=== PATIENT | female | born 1975 | race Caucasian/White ===

== ENCOUNTER 2018-09-10 19:23 | Emergency (ER) | payer SELFPAY, OTHER | END 2018-09-10 22:39 | disposition home or self-care (01) | LOC: ER FS 19:23 ==

== ENCOUNTER 2018-10-03 16:59 | Emergency (ER) | payer SELFPAY ==
[~2018-10-03] VITALS: Ht 157.5 cm; Wt 74.4 kg
[~2018-10-03 16:59] MED LIST: AMOX-358 PO; TRAM50TA2 PO
--- NOTE | 2018-10-03 17:03 | ED General ---
General Chief Complaint: Skin/Wound Problems Stated Complaint: WOUND ISSUES,FEVER, VOMITING, PAIN, LOW BP History of Present Illness Date Seen by Provider: Oct 03, 2018 Time Seen by Provider: 17:03 Initial Comments Patient sustained the laceration on September 10 and did not get the sutures taken out and she says since yesterday it has been more red and swollen around the wound and started draining purulent material today. She has surrounding cellulitis it goes down her leg. She is able to walk without difficulty and says that movements of her joint do not particularly make it worse. She has had no fevers or chills but she has been having nausea and vomiting today. She is in no obvious distress with normal vital signs other than noted low blood pressure. Allergies and Home Medications Allergies Coded Allergies: No Known Drug Allergies (Unverified , 09/10/18) Home Medications Amoxicillin/Potassium Clav 1 Each Tablet, 1 EACH PO BID Prescribed by: CRISTIANA EASTMAN on 09/17/18635 Amoxicillin/Potassium Clav 1 Each Tablet, 1 EACH PO BID Prescribed by: CRISTIANA EASTMAN on 09/17/18635 Amoxicillin/Potassium Clav 1 Each Tablet, 1 EACH PO BID Prescribed by: CRISTIANA EASTMAN on 09/17/18635 Amoxicillin/Potassium Clav 1 Each Tablet, 1 EACH PO BID Prescribed by: CRISTIANA EASTMAN on 09/17/18635 Amoxicillin/Potassium Clav 1 Each Tablet, 1 EACH PO BID Prescribed by: CRISTIANA EASTMAN on 09/10/182229 Tramadol HCl 50 Mg Tablet, 50 MG PO Q6H PRN for PAIN Prescribed by: CRISTIANA EASTMAN on 09/10/182216 Tramadol HCl 50 Mg Tablet, 50 MG PO Q6H PRN for PAIN Prescribed by: CRISTIANA EASTMAN on 09/17/18635 Patient Home Medication List Home Medication List Reviewed: Yes Review of Systems Review of Systems Constitutional: no symptoms reported Respiratory: no symptoms reported Cardiovascular: no symptoms reported Gastrointestinal: nausea, vomiting Skin: other (wound with drainage) Psychiatric/Neurological: No Symptoms Reported Hematologic/Lymphatic: No Symptoms Reported All Other Systems Reviewed Negative Unless Noted: Yes Past Mypfnob-Jkbhad-Qsgnbq Hx Patient Social History Drug of Choice: Meth Type Used: Cigarettes Recent Foreign Travel: No Contact w/Someone Who Travel: No Recent Hopitalizations: No Seasonal Allergies Seasonal Allergies: No Past Medical History Surgeries: Yes Hysterectomy Respiratory: No Cardiac: No Neurological: No Genitourinary: No Gastrointestinal: No Musculoskeletal: No Endocrine: No HEENT: No Cancer: No Psychosocial: No Integumentary: No Physical Exam Vital Signs Vital Signs - First Documented 10/03/18 17:26 Temp 100.2 Pulse 83 Resp 18 B/P (MAP) 84/37 (53) Capillary Refill : Height, Weight, BMI Height: 5'2.00" Weight: 165lbs. 0oz. [id number]; BMI Method:Stated General Appearance: No Apparent Distress, WD/WN Neck: Supple Respiratory: Lungs Clear, No Respiratory Distress Cardiovascular: Regular Rate, Rhythm Gastrointestinal: Non Tender Back: Normal Inspection Extremity: Normal Capillary Refill, Normal Range of Motion, Non Tender, No Calf Tenderness Neurologic/Psychiatric: Alert, Oriented x3 Skin: Other (anterior left knee laceration has drainage coming from the medial side and the lateral side and on the lateral edge there is a surrounding cellulitis that goes down skilled nursing her tibia. There is associated tenderness to palpation) Procedures/Interventions I&D : Blade Size: 11 I & D Procedure: betadine prep Packing/Drain: Idoform 02/25 Progress Patient prepped and draped in normal sterile fashion and wound was anesthetized with a total of 10 cc of lidocaine and 1 to centimeter medial incision was made with purulent drainage noted and a 3 cm lateral laceration made with purulent drainage as well. Both wounds were packed after being irrigated copiously. Suture Size: 3-0 Progress/Results/Core Measures Suspected Sepsis SIRS Temperature: Pulse: Respiratory Rate: Blood Pressure / Mean: Results/Orders My Orders Orders - CRISTIANA CHU DO Ceftriaxone For Im Use (Rocephin For Im (10/03/18 17:15) Lidocaine 1% Inj 20 Ml (Xylocaine 1% Inj (10/03/18 17:15) Ondansetron Oral Dissolve Tab (Zofran (10/03/18 17:10) Sulfamethoxazole/Trimet Ds Tab (Bactrim (10/03/18 17:15) Vital Signs/I&O 10/03/18 17:26 Temp 100.2 Pulse 83 Resp 18 B/P (MAP) 84/37 (53) Capillary Refill : Progress Note : Progress Note I told patient that I am quite concerned about the infections that she has and she is febrile tachycardic and has an extensive cellulitis with possible abscess but I do not think there is a joint infection at this time. I told her I cannot completely rule out and told her that I recommended doing an IV with blood work and transfer to another facility given she is hypotensive so that she could receive IV antibiotics. She said she could not afford this and asked me to try and treat her here. I told her this is not recommended that she could get worse possibly suffer life or limb consequences. She verbalized understanding and accepted these risks. I did the incision and drainage to hopefully evacuate as much infection is possible and remove the sutures are still in place. I gave her dose of intramuscular Rocephin and oral Bactrim and she'll be discharged on Keflex and Bactrim and told to drink plenty of fluids. Patient aware and agreeable with plan for discharge and verbalized understanding of the need for short-term follow-up, in fact I told to follow up in the emergency department here in 2 days as I will be here and she does not have a primary care provider. Told her she can come back sooner at any time with any worsening pain dizziness fevers or other general concerns. Patient aware and agreeable with plan and verbalized understanding of the above instructions. Departure Impression Primary Impression: Abscess of knee, left Additional Impression: Left leg cellulitis Disposition: 01 HOME, SELF-CARE Condition: Improved Departure-Patient Inst. Referrals: NO,LOCAL PHYSICIAN (PCP/Family) Primary Care Physician Patient Instructions: Abscess Incision and Drainage (DC), Cellulitis and Erysipelas (Skin Infections) Scripts Ondansetron (Ondansetron Odt) 4 Mg Tab.rapdis 4 MG PO TID PRN for NAUSEA/VOMITING-1ST LINE, #14 TAB Prov: CRISTIANA CHU DO 10/03/18 Sulfamethoxazole/Trimethoprim (Bactrim Ds Tablet) 1 Each Tablet 2 EACH PO BID for 7 Days, TAB Prov: CRISTIANA CHU DO 10/03/18 Cephalexin (Keflex) 500 Mg Capsule 500 MG PO TID for 7 Days, CAP Prov: CRISTIANA CHU DO 10/03/18 CRISTIANA CHU DO Oct 03, 2018 17:03
[2018-10-03] MEDS ORDERED: ONDANSETRON 4 MG (ZOFRAN) ORAL DISSOLVE TAB PO STA (17:10)
[2018-10-03] MEDS ORDERED: LIDOCAINE 1% INJ 20 ML 20 ML VIAL INJ ONE (17:15)
[2018-10-03] MEDS ORDERED: cefTRIAXone 2000 MG/5.7 ml VIAL (IM ONLY) IM ONE (17:15)
[2018-10-03] MEDS ORDERED: TRIM/SULFAMETH 160/800 (SEPTRA DS) TAB PO ONE (17:15)
[2018-10-03] MEDS ORDERED: CEPH-507 PO (17:49)
[2018-10-03] MEDS ORDERED: SULF1TAB35 PO (17:49)
[2018-10-03] MEDS ORDERED: ONDA4TAB11 PO (17:49)
[2018-10-03] MEDS: cefTRIAXone 1,000 MG/2.86 ml vial (IM ONLY) ONE ×2 (17:54→17:55)
[2018-10-03] MEDS ORDERED: ACETAMINOPHEN 500 MG TAB (TYLENOL) PO ONE (18:00)
[2018-10-03 18:08] VITALS: BP 97/52
== END 2018-10-03 18:09 | disposition home or self-care (01) ==
LOC: EDUNIT# 16:59 → ER FS 17:00
DX: L02.416 Cutaneous abscess of left lower limb (principal); L03.116 Cellulitis of left lower limb; S81.012D Laceration without foreign body, left knee, subsequent encounter; Z90.710 Acquired absence of both cervix and uterus; X58.XXXD Exposure to other specified factors, subsequent encounter
CPT/HCPCS: 10061

== ENCOUNTER 2018-10-05 11:52 | Emergency (ER) | payer SELFPAY ==
[~2018-10-05] VITALS: Ht 157.5 cm; Wt 74.4 kg
[~2018-10-05 11:52] MED LIST changes: +CEPH-507 PO; +ONDA4TAB11 PO; +SULF1TAB35 PO
--- NOTE | 2018-10-05 12:30 | ED Suture Removal/Wound Check ---
Suture/Wound Re-check Suture Removal/Wound Recheck : Suture Removal/Wound Recheck: Packing removed General Appearance: WD/WN, no apparent distress Neuro/Tendon: normal sensation, normal motor functions Skin Exam: other (erythema has improved significantly from prior skin marking and she has no pain or prior cellulitis was. No purulent drainage where the packing was. ) Comments Patient says that she is feeling much better and she has no fevers dizziness nausea vomiting or other systemic symptoms and admits that the pain is much better and she is walking around with no difficulty. I told patient given the size of this abscess that would be a good idea for me to reexamine her again in 2 days and I could repack it again once again and if it is still improving this would likely be her last return visit. Patient was told to continue her antibiotics as prescribed and come back to the ED sooner if worsening pain fevers or other general concerns. Patient aware and agreeable with plan and verbalized understanding of the above instructions. Physical Exam Vital Signs Vital Signs - First Documented 10/05/18 12:03 Pulse 97 Resp 18 B/P (MAP) 98/55 Pulse Ox 100 Capillary Refill : General Appearance: WD/WN, no apparent distress Cardiovascular: regular rate, rhythm Respiratory: no respiratory distress Skin: normal color, warm/dry Departure Impression Primary Impression: Abscess of knee, left Disposition: 01 HOME, SELF-CARE Condition: Stable Departure-Patient Inst. Referrals: NO,LOCAL PHYSICIAN (PCP/Family) Primary Care Physician Patient Instructions: Wound Care (DC) CRISTIANA CHU DO Oct 05, 2018 12:30
[2018-10-05 12:35] VITALS: BP 98/55
== END 2018-10-05 12:36 | disposition home or self-care (01) ==
LOC: EDUNIT# 11:52 → ER FS 11:52
DX: L02.416 Cutaneous abscess of left lower limb (principal)

== ENCOUNTER 2018-10-07 15:40 | Emergency (ER) | payer SELFPAY ==
[~2018-10-07] VITALS: Ht 157.5 cm; Wt 74.4 kg
[2018-10-07] MEDS ORDERED: CEPH-507 PO (15:59)
[2018-10-07] MEDS ORDERED: SULF1TAB35 PO (15:59)
--- NOTE | 2018-10-07 15:59 | ED Suture Removal/Wound Check ---
Suture/Wound Re-check Suture Removal/Wound Recheck : Suture Removal/Wound Recheck: Packing removed General Appearance: WD/WN, no apparent distress Neuro/Tendon: normal sensation, normal motor functions Skin Exam: other (erythema is just around sutures site now. Erythema has oth erwise completely resolved. Warmth just at suture site. No purulent drainage. ) Physical Exam Vital Signs Capillary Refill : General Appearance: WD/WN, no apparent distress Cardiovascular: regular rate, rhythm Skin: other (Still some cellulitis as above, abscess appears to be resolved) Comments Wound healing nicely in my opinion. I repacked her today. I told her she could take the packing out in 2 days and I don't think she will need to return to ED again as long as she continues to heal well. I told her she can return at any time for concerns of worsening infection, fevers, pain or other general concerns. Patient aware and agreeable with plan. Departure Impression Primary Impression: Cellulitis of knee, left Disposition: 01 HOME, SELF-CARE Condition: Stable Departure-Patient Inst. Referrals: NO,LOCAL PHYSICIAN (PCP/Family) Primary Care Physician Patient Instructions: Cellulitis (Skin Infection), Adult (DC) Scripts Cephalexin (Keflex) 500 Mg Capsule 500 MG PO TID, #9 CAP Prov: CRISTIANA CHU DO 10/07/18 Sulfamethoxazole/Trimethoprim (Bactrim Ds Tablet) 1 Each Tablet 2 EACH PO BID, #6 TAB Prov: CRISTIANA CHU DO 10/07/18 CRISTAINA CHU DO Oct 07, 2018 15:59
[2018-10-07 16:00] VITALS: BP 112/60
== END 2018-10-07 16:00 | disposition home or self-care (01) ==
LOC: EDUNIT# 15:40 → ER FS 15:41
DX: L03.116 Cellulitis of left lower limb (principal)
CPT/HCPCS: 99282

== ENCOUNTER 2019-01-09 15:28 | Emergency (ER) | payer OTHER ==
[~2019-01-09] VITALS: Ht 157.4 cm; Wt 76.3 kg
[2019-01-09 15:35] VITALS: BP 104/68
[2019-01-09 16:46] LABS: BENZODIAZEPINES SCREEN URINE NEGATIVE (NEGATIVE); COCAINE SCREEN URINE NEGATIVE (NEGATIVE); HCG,QUALITATIVE URINE NEGATIVE (NEGATIVE)
[2019-01-09 16:47] LABS: AMPHETAMINE SCREEN, URINE POSITIVE (NEGATIVE); BARBITURATE SCREEN URINE NEGATIVE (NEGATIVE); BILIRUBIN,URINE NEGATIVE (NEGATIVE); CANNABINOID SCREEN, URINE POSITIVE (NEGATIVE); CLARITY,URINE CLEAR; COLOR,URINE YELLOW; GLUCOSE, URINE (UA) NEGATIVE (NEGATIVE); KETONES,URINE NEGATIVE (NEGATIVE); LEUKOCYTE ESTERASE ,URINE NEGATIVE (NEGATIVE); METHADONE STAT NEGATIVE (NEGATIVE); METHAMPHETAMINE SCREEN URINE S NEGATIVE (NEGATIVE); NITRITE,URINE NEGATIVE (NEGATIVE); OPIATE SCREEN URINE NEGATIVE (NEGATIVE); OXYCODONE STAT NEGATIVE (NEGATIVE); PROPOXYPHENE STAT NEGATIVE (NEGATIVE); PROTEIN,URINE NEGATIVE (NEGATIVE); TRICYCLIC ANTIDEPRESSANTS SCRE NEGATIVE (NEGATIVE)
--- NOTE | 2019-01-09 17:21 | Diagnostic Imaging Report ---
PROCEDURE: CT head without contrast. TECHNIQUE: Multiple contiguous axial images were obtained through the brain without the use of intravenous contrast. Auto Exposure Controls were utilized during the CT exam to meet ALARA standards for radiation dose reduction. INDICATION: Seizure COMPARISON: None. FINDINGS: Ventricles are normal in size, shape and position. There is no midline shift or mass effect. There is no hemorrhage or evidence of acute ischemia. No extra-axial fluid collection or mass is identified. There is some motion artifact present. Bony calvarium, paranasal sinuses and mastoids are unremarkable. IMPRESSION: Limited due to motion artifact, otherwise negative CT head. Dictated by: Dictated on workstation # [id number]
[2019-01-09 17:52] LABS: BASOPHILS % (AUTO) 0 % (0-10); EOSINOPHILS # (AUTO) 0.1 10^3/uL (0.0-0.3); EOSINOPHILS % (AUTO) 2 % (0-10); HEMATOCRIT 43 % (35-52); LYMPHOCYTES # (AUTO) 2.1 X 10^3 (1.0-4.0); LYMPHOCYTES % (AUTO) 35 % (12-44); MEAN CORPUSCULAR HEMOGLOBIN 30 PG (25-34); MEAN CORPUSCULAR HGB CONC 33 G/DL (32-36); MEAN CORPUSCULAR VOLUME 93 FL (80-99); MEAN PLATELET VOLUME 10.3 FL (7.4-10.4); MONOCYTES # (AUTO) 0.5 X 10^3 (0.0-1.0); MONOCYTES % (AUTO) 8 % (0-12); NEUTROPHILS # (AUTO) 3.3 X 10^3 (1.8-7.8); NEUTROPHILS % (AUTO) 54 % (42-75); PLATELET COUNT 292 10^3/uL (130-400); RED CELL DISTRIBUTION WIDTH 12.1 % (10.0-14.5); WHITE BLOOD COUNT 6.1 10^3/uL (4.3-11.0)
[2019-01-09 18:12] LABS: ALANINE AMINOTRANSFERASE 8 U/L (0-55); ALKALINE PHOSPHATASE 63 U/L (40-136); BILIRUBIN,TOTAL 0.4 MG/DL (0.1-1.0); BUN/CREATININE RATIO 19; CALCIUM 9.5 MG/DL (8.5-10.1); CARBON DIOXIDE 29 MMOL/L (21-32); CHLORIDE 101 MMOL/L (98-107); CREATININE SERUM 0.67 MG/DL (0.60-1.30); GFR ESTIMATED > 60; GLUCOSE 110 MG/DL (70-105); POTASSIUM 5.1 MMOL/L (3.6-5.0); SODIUM 140 MMOL/L (135-145)
[2019-01-09 18:13] LABS: ACETAMINOPHEN < 10 UG/ML (10-30); ALBUMIN 4.2 GM/DL (3.2-4.5); SALICYLATE < 5.0 MG/DL (5.0-20.0); TOTAL PROTEIN 7.1 GM/DL (6.4-8.2)
--- NOTE | 2019-01-09 18:36 | ED Neurological Problem ---
General Chief Complaint: Neurological Problems Stated Complaint: SEIZURES; VOMITING Nursing Triage Note: Pt arrived via [employer] as she is in custody with c/o seizure activities x3(back to back to back). Pt reports she has a hx of seizures yet these are "different" as they do not usually occure that close together. Pt denies any other pain or problems. Nursing Sepsis Screen: No Definite Risk Source: patient History of Present Illness Date Seen by Provider: Jan 09, 2019 Time Seen by Provider: 17:59 Initial Comments 43-year-old female presenting with complaints of repeated seizures today at the group home. She states that she does have a history of seizures since she was about 11 years old. However she usually does not have seizures back to back. That her seizures were more prone to happen when she is under extra stress. She is currently incarcerated and has been in group home since last . She does not take medications for seizures. She denies having any fever or chills. She has not had any recent head injury. She denies any pain with urination. She denies any cough or congestion. The fact that she had 3 seizures back to back worried her and the group home staff gave her a dose of Keppra been referred her here to the emergency department. She has had no seizures here in the emergency department. She did not lose control of bowel or bladder during any of these seizures today. Allergies and Home Medications Allergies Coded Allergies: No Known Drug Allergies (Unverified , 09/10/18) Home Medications Amoxicillin/Potassium Clav 1 Each Tablet, 1 EACH PO BID Prescribed by: CRISTIANA EASTMAN on 09/17/18635 Amoxicillin/Potassium Clav 1 Each Tablet, 1 EACH PO BID Prescribed by: CRISTIANA EASTMAN on 09/17/18635 Amoxicillin/Potassium Clav 1 Each Tablet, 1 EACH PO BID Prescribed by: CRISTIANA EASTMAN on 09/17/18635 Amoxicillin/Potassium Clav 1 Each Tablet, 1 EACH PO BID Prescribed by: CRISTIANA EASTMAN on 09/17/18635 Amoxicillin/Potassium Clav 1 Each Tablet, 1 EACH PO BID Prescribed by: CRISTIANA EASTMAN on 09/10/182229 Cephalexin 500 Mg Capsule, 500 MG PO TID Prescribed by: CRISTIANA CHU on 10/03/18 174 Cephalexin 500 Mg Capsule, 500 MG PO TID Prescribed by: CRISTIANA CHU on 10/07/18 1559 Levetiracetam 500 Mg Tablet, 500 MG PO BID Prescribed by: JOELLEN RAMOS on 01/09/19 1845 Ondansetron 4 Mg Tab.rapdis, 4 MG PO TID PRN for NAUSEA/VOMITING-1ST LINE Prescribed by: CRISTIANA CHU on 10/03/18 174 Sulfamethoxazole/Trimethoprim 1 Each Tablet, 2 EACH PO BID Prescribed by: CRISTIANA CHU on 10/03/18 174 Sulfamethoxazole/Trimethoprim 1 Each Tablet, 2 EACH PO BID Prescribed by: CRISTIANA CHU on 10/07/18 1559 Tramadol HCl 50 Mg Tablet, 50 MG PO Q6H PRN for PAIN Prescribed by: CRISTIANA EASTMAN on 09/10/18 2217 Tramadol HCl 50 Mg Tablet, 50 MG PO Q6H PRN for PAIN Prescribed by: CRISTIANA EASTMAN on 09/17/18 0636 Patient Home Medication List Home Medication List Reviewed: Yes Review of Systems Review of Systems Constitutional: No chills, No fever Eyes: No Symptoms Reported Ears, Nose, Mouth, Throat: no symptoms reported Respiratory: no symptoms reported Cardiovascular: no symptoms reported Gastrointestinal: no symptoms reported Genitourinary: no symptoms reported Musculoskeletal: muscle pain (having generalized muscle soreness since having the seizures) Skin: no symptoms reported Psychiatric/Neurological: Tonic Clonic Seizures Past Qtirpnw-Eatahy-Hywkhz Hx Past Med/Social Hx: Reviewed Nursing Past Med/Soc Hx Patient Social History Alcohol Use: Denies Use Recreational Drug Use: Yes Drug of Choice: Meth/MARIJUANA Type Used: Cigarettes 2nd Hand Smoke Exposure: Yes Recent Foreign Travel: No Contact w/Someone Who Travel: No Recent Infectious Disease Expo: No Recent Hopitalizations: No Physical Abuse: No Sexual Abuse: No Mistreated: No Fear: No Seasonal Allergies Seasonal Allergies: No Past Medical History Surgeries: Yes Hysterectomy Respiratory: No Cardiac: No Neurological: No Genitourinary: No Gastrointestinal: No Musculoskeletal: No Endocrine: No HEENT: No Cancer: No Psychosocial: No Integumentary: No Physical Exam Vital Signs Vital Signs - First Documented 01/09/19 15:35 Temp 36.7 Pulse 65 Resp 15 B/P (MAP) 104/68 (80) Pulse Ox 98 Capillary Refill : Less Than 3 Seconds Height, Weight, BMI Height: 5'2.00" Weight: 164lbs. 0oz. 74.138385fc; 30.00 BMI Method:Stated General Appearance: WD/WN, no apparent distress HEENT: PERRL/EOMI, normal ENT inspection, pharynx normal (no signs of any laceration or bite hines on her tongue) Neck: non-tender, full range of motion, supple, normal inspection Respiratory: chest non-tender, lungs clear, normal breath sounds, no respiratory distress, no accessory muscle use Cardiovascular: normal peripheral pulses, regular rate, rhythm Gastrointestinal: normal bowel sounds, non tender, soft, no organomegaly, no pulsatile mass Extremities: normal range of motion, non-tender, normal capillary refill Neurologic/Psychiatric: document management consultant II-XII nml as tested, alert, normal mood/affect, oriented x 3 Crainal Nerves: normal speech, PERRL Coordination/Gait: normal gait Motor/Sensory: no motor deficit, no sensory deficit Skin: normal color, warm/dry Procedures/Interventions Suture Size: 3-0 Progress/Results/Core Measures Results/Orders Lab Results Laboratory Tests Test 01/09/19 16:30 01/09/19 17:38 Range/Units Urine Color YELLOW Urine Clarity CLEAR Urine pH 7.0 5-9 Urine Specific [place] <1.005 1.016-1.022 Urine Protein NEGATIVE NEGATIVE Urine Glucose (UA) NEGATIVE NEGATIVE Urine Ketones NEGATIVE NEGATIVE Urine Nitrite NEGATIVE NEGATIVE Urine Bilirubin NEGATIVE NEGATIVE Urine Urobilinogen 0.2 < = 1.0 MG/DL Urine Leukocyte Esterase NEGATIVE NEGATIVE Urine RBC (Auto) 1+ H NEGATIVE Urine RBC 2-5 H /HPF Urine WBC NONE /HPF Urine Crystals NONE /LPF Urine Bacteria NONE /HPF Urine Casts NONE /LPF Urine Mucus NEGATIVE /LPF Urine Culture Indicated NO Urine Test NEGATIVE NEGATIVE Urine Opiates Screen NEGATIVE NEGATIVE Urine Oxycodone Screen NEGATIVE NEGATIVE Urine Methadone Screen NEGATIVE NEGATIVE Urine Propoxyphene Screen NEGATIVE NEGATIVE Urine Barbiturates Screen NEGATIVE NEGATIVE Ur Tricyclic Antidepressants Screen NEGATIVE NEGATIVE Urine Phencyclidine Screen NEGATIVE NEGATIVE Urine Amphetamines Screen POSITIVE H NEGATIVE Urine Methamphetamines Screen NEGATIVE NEGATIVE Urine Benzodiazepines Screen NEGATIVE NEGATIVE Urine Cocaine Screen NEGATIVE NEGATIVE Urine Cannabinoids Screen POSITIVE H NEGATIVE White Blood Count 6.1 4.3-11.0 10^3/uL Red Blood Count 4.66 4.35-5.85 10^6/uL Hemoglobin 14.0 11.5-16.0 G/DL Hematocrit 43 35-52 % Mean Corpuscular Volume 93 80-99 FL Mean Corpuscular Hemoglobin 30 25-34 PG Mean Corpuscular Hemoglobin Concent 33 32-36 G/DL Red Cell Distribution Width 12.1 10.0-14.5 % Platelet Count 292 130-400 10^3/uL Mean Platelet Volume 10.3 7.4-10.4 FL Neutrophils (%) (Auto) 54 42-75 % Lymphocytes (%) (Auto) 35 12-44 % Monocytes (%) (Auto) 8 0-12 % Eosinophils (%) (Auto) 2 0-10 % Basophils (%) (Auto) 0 0-10 % Neutrophils # (Auto) 3.3 1.8-7.8 X 10^3 Lymphocytes # (Auto) 2.1 1.0-4.0 X 10^3 Monocytes # (Auto) 0.5 0.0-1.0 X 10^3 Eosinophils # (Auto) 0.1 0.0-0.3 10^3/uL Basophils # (Auto) 0.0 0.0-0.1 10^3/uL Sodium Level 140 135-145 MMOL/L Potassium Level 5.1 H 3.6-5.0 MMOL/L Chloride Level 101 98-107 MMOL/L Carbon Dioxide Level 29 21-32 MMOL/L Anion Gap 10 5-14 MMOL/L Blood Urea Nitrogen 13 7-18 MG/DL Creatinine 0.67 0.60-1.30 MG/DL Estimat Glomerular Filtration Rate > 60 BUN/Creatinine Ratio 19 Glucose Level 110 H 70-105 MG/DL Calcium Level 9.5 8.5-10.1 MG/DL Corrected Calcium 9.3 8.5-10.1 MG/DL Total Bilirubin 0.4 0.1-1.0 MG/DL Aspartate Amino Transf (AST/SGOT) 15 5-34 U/L Alanine Aminotransferase (ALT/SGPT) 8 0-55 U/L Alkaline Phosphatase 63 40-136 U/L Total Protein 7.1 6.4-8.2 GM/DL Albumin 4.2 3.2-4.5 GM/DL Salicylates Level < 5.0 L 5.0-20.0 MG/DL Acetaminophen Level < 10 L 10-30 UG/ML Serum Alcohol < 10 <10 MG/DL My Orders Orders - ENYART,JOELLEN E MD Ua Culture If Indicated (01/09/19 16:12) Cbc With Automated Diff (01/09/19 16:12) Comprehensive Metabolic Panel (01/09/19 16:12) Alcohol (01/09/19 16:12) Drug Screen Stat (Urine) (01/09/19 16:12) Acetaminophen (01/09/19 16:12) Salicylate (01/09/19 16:12) Hcg,Qualitative Urine (01/09/19 16:12) Ed Iv/Invasive Line Start (01/09/19 16:12) Ct Head Wo (01/09/19 16:12) Vital Signs/I&O 01/09/19 01/09/19 01/09/19 15:35 16:05 19:01 Temp 36.7 36.7 35.9 Pulse 65 65 70 Resp 15 15 16 B/P (MAP) 104/68 (80) 104/68 (80) 100/62 Pulse Ox 98 98 100 Blood Pressure Mean: 80 POS Progress Progress Note : Progress Note Obtain labs as well as urine and CT head. No acute abnormality seen on the tests seen. No sign of infection and no acute findings on the CAT scan. Reassured patient and group home staff. Advised to continue the Kera for now and encouraged to follow-up with the clinic and neurologist as an outpatient. Diagnostic Imaging Diagonstic Imaging: CT Plain Films/CT/US/NM/MRI: head Comments NAME: [facility] REC#: [id number] PT STATUS: REG ER : 1975 PHYSICIAN: JOELLEN RAMOS MD ADMIT DATE: 01/09/19/ER FS Signed POSDate of Exam:01/09/19 CT HEAD WO PROCEDURE: CT head without contrast. TECHNIQUE: Multiple contiguous axial images were obtained through the brain without the use of intravenous contrast. Auto Exposure Controls were utilized during the CT exam to meet ALARA standards for radiation dose reduction. INDICATION: Seizure COMPARISON: None. FINDINGS: Ventricles are normal in size, shape and position. There is no midline shift or mass effect. There is no hemorrhage or evidence of acute ischemia. No extra-axial fluid collection or mass is identified. There is some motion artifact present. Bony calvarium, paranasal sinuses and mastoids are unremarkable. IMPRESSION: Limited due to motion artifact, otherwise negative CT head. Dictated by: Dictated on workstation # [id number] Dict: 01/09/19 1712 Trans: 01/09/191836 [facility] [id number] Interpreted by: VALENTIN KARIMI Electronically signed by: VALENTIN KARIMI 01/09/191836 Departure Impression Primary Impression: Increasing frequency of seizure activity Additional Impression: Stress reaction Disposition: 01 HOME, SELF-CARE Condition: Stable Departure-Patient Inst. Decision time for Depature: 18:43 Referrals: NO,LOCAL PHYSICIAN (PCP) Primary Care Physician [facility] Patient Instructions: Seizures, Adult (DC), Stress Add. Discharge Instructions: Continue on the Keppra for seizures until you can follow up with Neurology and clinic Try to get established with a provider through [facility] or clinic of your [facility] for follow up as soon as possible All discharge instructions reviewed with patient and/or family. Voiced understanding. Scripts Levetiracetam (Keppra) 500 Mg Tablet 500 MG PO BID for Seizure Activity for 30 Days, #60 TAB 0 Refills Prov: JOELLEN RAMOS MD 01/09/19 JOELLEN RAMOS MD Jan 09, 2019 18:36 POS
[2019-01-09] MEDS ORDERED: LEVE500T99 PO (18:45)
[2019-01-09 19:01] VITALS: BP 100/62
== END 2019-01-09 19:01 | disposition home or self-care (01) ==
LOC: EDUNIT# 15:28 → ER FS 15:29
DX: R56.9 Unspecified convulsions (principal); F43.9 Reaction to severe stress, unspecified; Z77.22 Contact with and (suspected) exposure to environmental tobacco smoke (acute) (chronic); Z90.710 Acquired absence of both cervix and uterus
CPT/HCPCS: 36415; 70450; 80053; 80306; 80320; 80329; 81000; 84703; 85025

== ENCOUNTER 2019-02-16 14:33 | Emergency (ER) | payer OTHER ==
[~2019-02-16] VITALS: Ht 157.4 cm; Wt 77.8 kg
[~2019-02-16 14:33] MED LIST changes: +LEVE500T99 PO
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
[2019-02-16] MEDS ORDERED: LEVETIRACETAM 500 MG (KEPPRA) TAB PO ONE (15:30)
[2019-02-16] MEDS ORDERED: diphenhydrAMINE 50 MG/ML INJ (BENADRYL) IVP ONE (15:45)
[2019-02-16 15:52] LABS: WHITE BLOOD COUNT 7.6 10^3/uL (4.3-11.0)
[2019-02-16 15:53] LABS: BASOPHILS % (AUTO) 1 % (0-10); EOSINOPHILS # (AUTO) 0.2 10^3/uL (0.0-0.3); EOSINOPHILS % (AUTO) 2 % (0-10); HEMATOCRIT 42 % (35-52); HEMOGLOBIN 13.4 G/DL (11.5-16.0); LYMPHOCYTES # (AUTO) 1.7 X 10^3 (1.0-4.0); LYMPHOCYTES % (AUTO) 23 % (12-44); MEAN CORPUSCULAR HEMOGLOBIN 30 PG (25-34); MEAN CORPUSCULAR HGB CONC 32 G/DL (32-36); MEAN CORPUSCULAR VOLUME 94 FL (80-99); MEAN PLATELET VOLUME 10.6 FL (7.4-10.4); MONOCYTES # (AUTO) 0.5 X 10^3 (0.0-1.0); MONOCYTES % (AUTO) 7 % (0-12); NEUTROPHILS # (AUTO) 5.2 X 10^3 (1.8-7.8); NEUTROPHILS % (AUTO) 68 % (42-75); PLATELET COUNT 253 10^3/uL (130-400); RED CELL DISTRIBUTION WIDTH 12.2 % (10.0-14.5)
[2019-02-16 16:08] LABS: ALANINE AMINOTRANSFERASE 12 U/L (0-55); ALKALINE PHOSPHATASE 68 U/L (40-136); BILIRUBIN,TOTAL 0.2 MG/DL (0.1-1.0); BUN/CREATININE RATIO 15; CALCIUM 9.3 MG/DL (8.5-10.1); CARBON DIOXIDE 25 MMOL/L (21-32); CHLORIDE 104 MMOL/L (98-107); CREATININE SERUM 0.72 MG/DL (0.60-1.30); GFR ESTIMATED > 60; GLUCOSE 83 MG/DL (70-105); POTASSIUM 3.6 MMOL/L (3.6-5.0); SODIUM 143 MMOL/L (135-145)
[2019-02-16 16:09] LABS: ALBUMIN 4.1 GM/DL (3.2-4.5)
--- NOTE | 2019-02-16 16:25 | NUR ---
Ramesh from lab here to draw the Keppra level.
[2019-02-16 17:15] VITALS: BP 113/64
--- NOTE | 2019-02-16 17:15 | NUR ---
Dismissed per [facility] custody. Pt never would produce a urine in ER for order and Dr agreed to officer he has medically cleared her and will release. Review of instructions per Mary ABDULLAHI.
== END 2019-02-16 17:15 ==
LOC: EDUNIT# 14:33 → ER FS 14:34
DX: G40.909 Epilepsy, unspecified, not intractable, without status epilepticus (principal); Z77.22 Contact with and (suspected) exposure to environmental tobacco smoke (acute) (chronic); Z90.710 Acquired absence of both cervix and uterus
CPT/HCPCS: 36415; 80053; 80177; 85025